=== PATIENT | female | born 1970 | race Caucasian/White ===

== ENCOUNTER 2025-01-02 17:08 | Inpatient (IN) | payer MEDICARE ==
[~2025-01-02] VITALS: Ht 162.6 cm; Wt 63.5 kg
[2025-01-02 17:11] VITALS: O2SAT 100
[2025-01-02] MEDS: ONDANSETRON HCL 4MG/2ML INJ IV ONE (17:15)
[2025-01-02 17:35] LABS: BG BASE EXCESS -1.9 mmol/L (-2.0-3.0); BG CARBOXYHEMOGLOBIN 0.8 % (0.5-1.5); BG DEOXYHEMOGLOBIN 2.2 % (0.0-5.0); BG FLOW(L/min) 3.00 L/min; BG FRACTION INSPIRED OXYGEN 32; BG HCO3 ACT 22.8 mmol/L (21.0-28.0); BG METHEMOGLOBIN 0.2 % (0.5-1.5); BG OXYGEN SATURATION 97.8 % (94.0-98.0); BG OXYHEMOGLOBIN 96.8 % (94.0-98.0); BG PCO2 38.6 mmHg (32.0-45.0); BG PH 7.390 (7.350-7.450); BG PO2 113.8 mmHg (83.0-108.0); BG SAMPLE SITE LEFT RADIAL; BG TOTAL HEMOGLOBIN 9.4 g/dL (12.0-16.0); BG VENT MODE NASAL CANNULA
[2025-01-02 18:02] LABS: BASOPHILS % 0.9 % (0.0-2.0); EOSINOPHILS % 4.7 % (0.0-5.0); HEMATOCRIT. 26.2 % (36.0-48.0); HEMOGLOBIN. 8.6 g/dL (12.0-16.0); LYMPHOCYTES % 11.1 % (20.0-50.0); MEAN PLATELET VOLUME 8.7 fl (7.4-10.4); MONOCYTES % 8.6 % (2.0-8.0); NEUTROPHILS % 74.7 % (40.0-76.0); PLATELET 235 x1000/uL (130-400); RED BLOOD CELL COUNT 2.69 mill/uL (4.2-5.4); RED CELL DISTRIBUTION WIDTH 17.9 % (11.6-14.6)
[2025-01-02 18:12] LABS: INR 1.5
[2025-01-02 18:16] LABS: HCG SCREEN NEGATIVE
[2025-01-02 18:17] LABS: UREA NITROGEN BLOOD 66 mg/dL (9-23)
[2025-01-02] MEDS: FAMOTIDINE 20MG/2ML VIAL IV ONE (18:18)
[2025-01-02] MEDS: ONDANSETRON HCL 4MG/2ML INJ ONE (18:18)
[2025-01-02] MEDS: SODIUM CHLORIDE 0.9% 250 ML IV ONE (18:18)
[2025-01-02 18:19] LABS: ASPARTATE AMINOTRANSFERASE 53 IU/L (<34); ETHANOL BLOOD < 10 mg/dL (<10)
[2025-01-02 18:21] LABS: BILIRUBIN DIRECT 0.2 mg/dL (<=3.0); BILIRUBIN TOTAL 0.3 mg/dL (0.1-1.0); PROTEIN TOTAL 7.0 g/dL (6.0-8.3)
[2025-01-02 18:42] LABS: CREATININE 8.3 mg/dL (0.6-1.0)
[2025-01-02 19:00] VITALS: PULSE 71; RESP 18
[2025-01-02] MEDS: ALBUTEROL (0.5%) 2.5MG/0.5ML NEB HHN SCH (19:02)
[2025-01-02] MEDS: DEXTROSE 50% WATER 50ML SYRINGE IV SCH (19:53)
[2025-01-02] MEDS: SODIUM BICARBONATE 8.4% 50MEQ/50ML VIAL IV SCH (19:53)
[2025-01-02] MEDS: CALCIUM GLUCONATE 100MG/ML 10ML VIAL IV SCH (19:54)
[2025-01-02] MEDS: FUROSEMIDE 100MG/10ML VIAL IV SCH (19:54)
[2025-01-02 19:55] LABS: TROPONIN I HIGH SENSITIVITY 811 ng/L (3.0-34)
[2025-01-02] MEDS: INSULIN REGULAR (HUMULIN R) 1000UNITS/10ML VIAL IV SCH (19:56)
[2025-01-02] MEDS ORDERED: GUAIFENESIN 200MG/10ML SUGAR FREE UDC PO PRN (20:00)
[2025-01-02] MEDS ORDERED: ACETAMINOPHEN 325MG TABLET PO PRN (20:00)
[2025-01-02] MEDS ORDERED: MAGNESIUM/ALUMINUM HYDROXIDE/SIMETHICONE 30ML UDC PO PRN (20:00)
[2025-01-02] MEDS ORDERED: IPRATROPIUM/ALBUTEROL 0.5-3(2.5)MG/3ML NEB HHN PRN (20:00)
[2025-01-02 20:54] LABS: CREATINE KINASE MB FRACTION 0.6 ng/mL (0.5-3.6); UREA NITROGEN BLOOD 66 mg/dL (9-23)
[2025-01-02 20:55] VITALS: BP 104/67; PULSE 68; RESP 20; TEMP 36.7; O2SAT 99
[2025-01-02 20:56] LABS: PHOSPHORUS 3.7 mg/dL (2.5-4.9)
[2025-01-02] MEDS: ASPIRIN 81MG TABLET PO SCH (21:00)
[2025-01-02] MEDS: SUMATRIPTAN SUCCINATE 25MG TABLET PO SCH (21:00)
[2025-01-02 21:16] LABS: CREATININE 8.4 mg/dL (0.6-1.0); TROPONIN I HIGH SENSITIVITY 764 ng/L (3.0-34)
[2025-01-02 22:52] VITALS: BP 104/67; PULSE 68; RESP 20; TEMP 36.696
[2025-01-02] MEDS ORDERED: SUMATRIPTAN SUCCINATE 25MG TABLET PO NR (23:45)
[2025-01-03] VITALS (14 sets, daily range): BP systolic 113–144; BP diastolic 66–87; PULSE 68–82; RESP 17–20; TEMP 36.114–37.2; O2SAT 90–98
[2025-01-03] MEDS: ENOXAPARIN 30MG/0.3ML SYR SUBCUT SCH (00:31)
[2025-01-03] MEDS: ASPIRIN 81MG TABLET PO NR (00:31)
[2025-01-03 01:06] LABS: TRIGLYCERIDE 95.0 mg/dL (0-150)
[2025-01-03 01:07] LABS: LDL CHOLESTEROL 55.0 mg/dL (5-100)
[2025-01-03] MEDS: PANTOPRAZOLE SODIUM 40 MG/VIAL IV SCH (09:00)
[2025-01-03 12:20] LABS: BASOPHILS % 1.1 % (0.0-2.0); EOSINOPHILS % 4.1 % (0.0-5.0); HEMATOCRIT. 25.1 % (36.0-48.0); HEMOGLOBIN. 8.3 g/dL (12.0-16.0); LYMPHOCYTES % 8.5 % (20.0-50.0); MEAN PLATELET VOLUME 8.7 fl (7.4-10.4); MONOCYTES % 6.9 % (2.0-8.0); NEUTROPHILS % 79.4 % (40.0-76.0); PLATELET 251 x1000/uL (130-400); RED BLOOD CELL COUNT 2.60 mill/uL (4.2-5.4); RED CELL DISTRIBUTION WIDTH 17.7 % (11.6-14.6)
[2025-01-03 12:43] LABS: UREA NITROGEN BLOOD 29.0 mg/dL (9-23)
[2025-01-03 12:46] LABS: CREATININE 4.9 mg/dL (0.6-1.0)
[2025-01-03] MEDS: ATORVASTATIN CALCIUM 40MG TABLET PO SCH (20:11)
[2025-01-04] VITALS (9 sets, daily range): BP systolic 112–160; BP diastolic 66–95; PULSE 67–87; RESP 14–20; TEMP 36.1–36.9; O2SAT 92–98
[2025-01-04] MEDS: CLONIDINE 0.1MG TABLET PO PRN (02:06)
[2025-01-04] MEDS: ONDANSETRON HCL 4MG/2ML INJ IV PRN (08:07)
[2025-01-04] MEDS: ASPIRIN 81MG TABLET PO SCH (08:08)
[2025-01-04] MEDS: DIPHENHYDRAMINE 50MG/ML VIAL IV SCH (10:02)
[2025-01-04 11:12] LABS: BASOPHILS % 1.0 % (0.0-2.0); EOSINOPHILS % 4.6 % (0.0-5.0); HEMATOCRIT. 25.1 % (36.0-48.0); HEMOGLOBIN. 8.4 g/dL (12.0-16.0); LYMPHOCYTES % 8.4 % (20.0-50.0); MEAN PLATELET VOLUME 8.5 fl (7.4-10.4); MONOCYTES % 7.3 % (2.0-8.0); NEUTROPHILS % 78.7 % (40.0-76.0); PLATELET 255 x1000/uL (130-400); RED BLOOD CELL COUNT 2.60 mill/uL (4.2-5.4); RED CELL DISTRIBUTION WIDTH 17.7 % (11.6-14.6)
[2025-01-04 11:22] LABS: TRIGLYCERIDE 86.0 mg/dL (0-150)
[2025-01-04 11:23] LABS: LDL CHOLESTEROL 65.0 mg/dL (5-100)
[2025-01-04 11:26] LABS: T4 FREE 1.35 ng/dL (0.89-1.76)
[2025-01-04 14:23] LABS: CREATINE KINASE MB FRACTION < 0.5 ng/mL (0.5-3.6)
[2025-01-04 14:30] LABS: TROPONIN I HIGH SENSITIVITY 626 ng/L (3.0-34)
[2025-01-04] MEDS: ACETAMINOPHEN 325MG TABLET PO PRN (15:08)
[2025-01-04] MEDS ORDERED: CALC0.253 MT (15:51)
[2025-01-04] MEDS ORDERED: FOLI-43 MT (15:51)
[2025-01-04] MEDS ORDERED: APIX5TAB MT (15:51)
[2025-01-04] MEDS ORDERED: METO25TA6 MT (15:51)
[2025-01-04] MEDS ORDERED: CARV25TA47 MT (15:51)
[2025-01-04] MEDS ORDERED: ATOR-2 MT (15:51)
[2025-01-04] MEDS ORDERED: CINA30 MT (15:51)
[2025-01-04] MEDS ORDERED: GABA-529 MT (15:51)
[2025-01-04] MEDS ORDERED: ASPI-1497 MT (15:51)
[2025-01-04] MEDS ORDERED: AMLO10TA80 MT (15:51)
[2025-01-04] MEDS ORDERED: SEVE800T8 MT (18:25)
[2025-01-04] MEDS: MELATONIN 3MG TABLET PO SCH (21:15)
[2025-01-04] MEDS: SUMATRIPTAN SUCCINATE 25MG TABLET PO SCH (21:16)
[2025-01-05] VITALS: BP 150/91; PULSE 69; RESP 19; TEMP 36.2; O2SAT 97
[2025-01-05] MEDS: HYDROCODONE/ACETAMINOPHEN 5/325MG TABLET PO PRN (00:54)
[2025-01-05] MEDS ORDERED: NALOXONE HCL 0.4MG/ML VIAL IV PRN (01:00)
[2025-01-05 04:00] VITALS: BP 153/98; PULSE 73; RESP 19; TEMP 36.6; O2SAT 98
[2025-01-05 08:00] VITALS: BP 176/105; PULSE 67; RESP 16; TEMP 36.7; O2SAT 99
[2025-01-05] MEDS: DOCUSATE SODIUM 100MG CAPSULE PO PRN (08:40)
== END 2025-01-05 11:15 | disposition left against medical advice (07) | DRG 280 ==
LOC: ER 17:15 → 8WST 19:14 → EDBEDREQTM 19:42 → EDBEDREQ 19:42 → EDBEDREQSVC 19:42 → ENRESERV 20:28
PROVIDERS: ADMIT Internal Medicine; ATTEND Internal Medicine
PROC: 5A1D70Z Performance of Urinary Filtration, Intermittent, Less than 6 Hours Per Day (ICD-10-PCS; principal; 2025-01-03)
PROC: 5A1D70Z Performance of Urinary Filtration, Intermittent, Less than 6 Hours Per Day (ICD-10-PCS; 2025-01-04)
DX: I13.2 Hypertensive heart and chronic kidney disease with heart failure and with stage 5 chronic kidney disease, or end stage renal disease (principal); N18.6 End stage renal disease; I21.A1 Myocardial infarction type 2; R00.1 Bradycardia, unspecified; E87.5 Hyperkalemia; I50.9 Heart failure, unspecified; I95.9 Hypotension, unspecified; I25.10 Atherosclerotic heart disease of native coronary artery without angina pectoris; E78.5 Hyperlipidemia, unspecified; J45.909 Unspecified asthma, uncomplicated; G43.909 Migraine, unspecified, not intractable, without status migrainosus; R74.01 Elevation of levels of liver transaminase levels; D64.9 Anemia, unspecified; Z53.29 Procedure and treatment not carried out because of patient's decision for other reasons; Z60.2 Problems related to living alone; K74.60 Unspecified cirrhosis of liver; Z86.711 Personal history of pulmonary embolism; Z86.718 Personal history of other venous thrombosis and embolism; Z99.2 Dependence on renal dialysis; Z95.1 Presence of aortocoronary bypass graft
CPT/HCPCS: 36415; 36600; 71045; 80048; 80061; 80076; 80307; 80320; 80329; 82140; 82375; 82550; 82553; 82805; 82962; 83036; 83605; 83735; 83880; 84100; 84132; 84145; 84439; 84443; 84484; 84703; 85025; 90935; 93005; 93970; 94640; 94664; 96361; 96374; 99291; J0612; J1200; J1308; J1650; J1815; J1938; J2405; J2470; J3490; J7050; G0480